=== PATIENT | male | born 1985 | race African-American/Black ===

== ENCOUNTER 2018-03-22 18:08 | Emergency (ER) | payer SELFPAY ==
[~2018-03-22] VITALS: Ht 185.4 cm; Wt 94.1 kg
[2018-03-22 18:18] VITALS: Ht 185.4 cm; Wt 94.1 kg
[2018-03-22 18:32] LABS: BASOPHILS 0.3 % (0-2); EOSINOPHILS 3.3 % (0-7); HEMATOCRIT 38.9 % (42.0-54.0); IMMATURE GRANULOCYTES 0.2 % (0-5); MCH 27.8 pg (26.0-34.0); MCHC 33.4 g/dL (31.0-37.0); MCV 83.3 fL (80.0-100.0); MEAN PLATELET VOLUME 10.9 fL (7.4-10.4); MONOCYTES 7.3 % (2-11); NEUTROPHILS 49.9 % (40-80); PLATELET COUNT 168 10x3/uL (130-400); RBC 4.67 10x6/uL (4.20-6.10); RDW 13.8 % (11.5-14.5); WBC 6.4 10x3/uL (4.8-10.8)
[2018-03-22 18:45] LABS: ANION GAP 11.9 mmol/L (8-16); BILIRUBIN - TOTAL 0.33 mg/dL (0.2-1.3); CALCIUM 8.7 mg/dL (8.5-10.1); CARBON DIOXIDE 27.7 mmol/L (21.0-32.0); CREATININE - SERUM 1.3 mg/dL (0.6-1.3); POTASSIUM - SERUM 3.6 mmol/L (3.5-5.1); PROTEIN - SERUM 7.7 g/dL (6.4-8.2)
[2018-03-22] MEDS ORDERED: OMNICEF300 MG PO (18:59)
[2018-03-22] MEDS ORDERED: PREDNISONE20 MG PO (18:59)
[2018-03-22] MEDS ORDERED: ZOFRAN8 MG PO (18:59)
[2018-03-22 20:12] VITALS: BP 142/70
== END 2018-03-22 20:12 | disposition home or self-care (01) ==
LOC: D.ER 18:08
PROVIDERS: Emergency Medicine
DX: R11.2 Nausea with vomiting, unspecified (principal); J02.9 Acute pharyngitis, unspecified

== ENCOUNTER 2018-12-12 23:33 | Emergency (ER) | payer SELFPAY ==
[~2018-12-12] VITALS: Ht 185.4 cm; Wt 94.1 kg
[~2018-12-12 23:33] MED LIST: OMNICEF300 MG PO; PREDNISONE20 MG PO; ZOFRAN8 MG PO
[2018-12-12 23:43] VITALS: Ht 185.4 cm; Wt 94.1 kg
[2018-12-13 00:16] LABS: BASOPHILS 0.2 % (0-2); HEMATOCRIT 41.1 % (42.0-54.0); HEMOGLOBIN 14.3 g/dL (13.5-17.5); IMMATURE GRANULOCYTES 0.2 % (0-5); MCH 28.6 pg (26.0-34.0); MCHC 34.8 g/dL (31.0-37.0); MCV 82.2 fL (80.0-100.0); MEAN PLATELET VOLUME 10.8 fL (7.4-10.4); MONOCYTES 12.2 % (2-11); NEUTROPHILS 65.4 % (40-80); PLATELET COUNT 169 10x3/uL (130-400); RDW 13.8 % (11.5-14.5)
[2018-12-13 00:24] LABS: ANION GAP 10.2 mmol/L (8-16); CALCIUM 9.1 mg/dL (8.5-10.1); CARBON DIOXIDE 28.4 mmol/L (21.0-32.0); CREATININE - SERUM 1.4 mg/dL (0.6-1.3); POTASSIUM - SERUM 3.6 mmol/L (3.5-5.1)
[2018-12-13] MEDS ORDERED: ZPAK PO (00:31)
[2018-12-13] MEDS ORDERED: ALBUTEROL SULF8.5 GM INH (00:31)
[2018-12-13 00:49] VITALS: BP 128/74
== END 2018-12-13 00:51 | disposition home or self-care (01) ==
LOC: D.ER 23:33
PROVIDERS: Family Medicine
DX: J40 Bronchitis, not specified as acute or chronic (principal); J32.9 Chronic sinusitis, unspecified